=== PATIENT | female | born 1945 | race Caucasian/White ===

== ENCOUNTER → 2017-09-25 | Outpatient (CLI) | payer OTHER | LOC: RAD 10:35 | DX: M17.0 Bilateral primary osteoarthritis of knee (principal) ==

== ENCOUNTER → 2020-04-29 | Outpatient (CLI) | payer OTHER | LOC: SJCVC 13:23 | PROVIDERS: ATTEND Internal Medicine Cardiovascular Disease | DX: R94.31 Abnormal electrocardiogram [ECG] [EKG] (principal); R06.09 Other forms of dyspnea; I25.10 Atherosclerotic heart disease of native coronary artery without angina pectoris; E78.5 Hyperlipidemia, unspecified; G45.9 Transient cerebral ischemic attack, unspecified; I63.9 Cerebral infarction, unspecified; Z79.899 Other long term (current) drug therapy ==

== ENCOUNTER → 2020-05-20 | Outpatient (CLI) | payer OTHER ==
[~2020-05-20] MED LIST: ACYCLOVIR 800800 MG PO; CYMBALTA30 MG PO; DYAZIDE 37.5-21 EACH PO; PROTONIX40 M2 PO; SEROQUEL 25 MG25 M1 PO; WELLBUTRIN 100100 MG PO; ZYRTEC10 M5 PO
== END ==
LOC: SJCVCIMAG 07:56
PROVIDERS: ATTEND Internal Medicine Cardiovascular Disease
DX: I07.1 Rheumatic tricuspid insufficiency (principal); I45.10 Unspecified right bundle-branch block; R00.0 Tachycardia, unspecified; I49.3 Ventricular premature depolarization; E78.5 Hyperlipidemia, unspecified

== ENCOUNTER → 2020-05-27 | Outpatient (CLI) | payer OTHER ==
[~2020-05-27] VITALS: Ht 162.6 cm; Wt 76.0 kg
[2020-05-27 08:52] VITALS: BP 127/67
[2020-05-27 08:56] LABS: HEMATOCRIT 42.9 % (37.0-47.0); MCHC 32.6 g/dL (28.0-37.0); RBC 4.38 mil/uL (4.20-5.00); RDW 13.9 % (10.5-14.5); WBC 4.5 thou/uL (4.0-11.0)
--- NOTE | 2020-05-28 10:54 | CATHLAB ---
[facility] [place] [address] INVASIVE PROCEDURE REPORT Name: MADDY CANALES Room #: REG [facility]ICK[facility] Mendes.#: [id number] Admission: 05/27/20 Attend Phys: Sabino Scherer MD Discharge: Date of : 41 Report #: [id number] THIS REPORT FOR: cc: Jesusita Rutledge DNP, Mary E. DNP Park, Jin S. MD ~ APPROVED REPORT Study performed: 05/27/2020 10:17:17 Patient Details Patient Status: Out-Patient Room #: The patient is a 75 year-old female Event Personnel Sabino Scherer Seismograph Supervisor, Amanda Fatima RN RN, Liliya Villalobos RN RN, Monique Graham RTR Jenae, Jazlyn Kevin RTR Monitor Procedures Performed Art Access - R femoral artery* Left Heart Cath w/or w/o Coronaries [id number] [facility] [id number] Initial Mod Sed Same Phys/QHP Gr5y [id number] Mod Sed Same Phys/QHP Ea 196978 Hemostasis with Manual pressure Indication Dyspnea, Positive stress test, Chest pain Risk Factors Chronic Lung DiseaseHypercholesterolemiaPhysical Activity, Hypertension, Diabetes Procedure Narrative The Right Groin^ was infiltrated with 1% Lidocaine subcutaneous anesthesia. A PINNACLE 4FR Sheath #[id number] sheath was inserted into the RFA^. Coronary angiography was performed using coronary diagnostic catheters. The right coronary system was accessed and visualized with a JR4 catheter. The left coronary system was accessed and visualized with a JL4 catheter. The left ventricle was accessed and visualized with a PIGTAIL catheter. Hemostasis was obtained with manual pressure following sheath removal without any complications. The patient tolerated the procedure well and there were no complications associated with the procedure. There was no hematoma. [facility] [address] [place] [address] INVASIVE PROCEDURE REPORT Name: MADDY CANALES Room #: REG [facility]#: [id number] Admission: 05/27/20 Attend Phys: Sabino Scherer MD Discharge: Date of : 41 Report #: [id number] Intraoperative Conscious Sedation Sedation start time: 1048 Case end Time: 1119 Fentanyl 50 mcg Versed 1 mg Fluoro Time: 2.30 minutes Dose: DAP 3053.00 cGycm2 808 mGy Contrast Type and Amount: Visipaque 120 ml Coronary Angiography The patient's coronary anatomy is right dominant. Diagnostic Cath Left Main The left main artery is a large-caliber vessel, patent with no flow-limiting lesions. LAD The LAD is a moderate-sized caliber vessel, traversing the anterior wall and terminating at the apex. This vessel appears angiographically normal. Diagonal 1 This is a moderate-sized caliber vessel, patent with no flow-limiting lesions. Circumflex The left circumflex artery is a moderate-sized caliber vessel, with no flow-limiting lesions. OM1 This is a moderate-sized caliber vessel, patent with no flow-limiting lesions. Right Coronary The RCA is a dominant vessel, with mild ectatic segments in the proximal and distal region. There is a mild stenosis in the midsegment, 30%. R PDA This is a moderate-sized caliber vessel, patent with no flow-limiting lesions. RPLV This is a moderate-sized caliber vessel, patent with no flow-limiting lesions. Left Ventriculography Left Ventriculography was not performed. Ejection Fraction was 55-60% based off patient's Nuclear Cardiac Stress Test. An LVEDP was measured and there is no gradient across the outflow tract. Hemodynamics The aortic pressure is 121/64 mmHg with a mean of 88 mmHg. The left ventricular pressure is 128/8 mmHg with a mean of mmHg. The left ventricular end diastolic pressure is 16 mmHg. Conclusion 1. There is mild disease in a dominant RCA. [facility] [address] [place] [address] INVASIVE PROCEDURE REPORT Name: MADDY CANALES Room #: REG [facility]#: [id number] Admission: 05/27/20 Attend Phys: Sabino Scherer MD Discharge: Date of : 41 Report #: [id number] 2. There is normal LV systolic function. 3. Recommend guideline directed medical therapy. <ELECTRONICALLY SIGNED> By: Sabino Scherer MD 05/28/20 1054 53 53 Sabino Scherer MD /INF
== END ==
LOC: CATH 08:08
PROVIDERS: ATTEND Internal Medicine Cardiovascular Disease
DX: R07.9 Chest pain, unspecified (principal); R06.00 Dyspnea, unspecified; R94.39 Abnormal result of other cardiovascular function study; E78.5 Hyperlipidemia, unspecified; M19.90 Unspecified osteoarthritis, unspecified site; Z86.73 Personal history of transient ischemic attack (TIA), and cerebral infarction without residual deficits; Z90.710 Acquired absence of both cervix and uterus; Z98.890 Other specified postprocedural states; Z79.899 Other long term (current) drug therapy

== ENCOUNTER → 2021-06-20 | Outpatient (CLI) | payer OTHER | LOC: RAD 09:25 | PROVIDERS: ATTEND Internal Medicine | DX: R06.00 Dyspnea, unspecified (principal); M85.80 Other specified disorders of bone density and structure, unspecified site ==